=== PATIENT | male | born 1955 | race Caucasian/White ===

== ENCOUNTER 2016-09-27 16:32 | Observation (INO) | payer OTHER ==
[2016-09-27] MEDS ORDERED: ZOFRAN INJ 4 MG VIAL IVP PRN (17:35)
[2016-09-27] MEDS: MORPHINE SULFATE INJ 2 MG IVP PRN ×2 (17:56→22:00)
[2016-09-27] MEDS: ZOSYN VIAL 3.375 GM 3.375 GM in NS 100 ML IV + SPIKE MINIBAG* 100 ML IV SCH (17:56)
[2016-09-27] MEDS: NS 1000 ML 1,000 ML IV SCH (17:57)
[2016-09-27 18:46] LABS: BASOPHILS # (AUTO) 0.1 X10^3/uL (0.0-0.1); BASOPHILS % (AUTO) 0.4 % (0.2-1.0); EOSINOPHILS # (AUTO) 0.1 x10^3/uL (0.0-0.2); EOSINOPHILS % (AUTO) 0.9 % (0.9-2.9); HEMATOCRIT 47.1 % (42.0-54.0); HEMOGLOBIN 15.7 g/dL (13.5-18.0); LYMPHOCYTES % (AUTO) 13.3 % (21.0-51.0); MEAN CORPUSCULAR HEMOGLOBIN 32.1 pg (27.0-34.0); MEAN CORPUSCULAR HGB CONC 33.3 g/dL (33.0-35.0); MEAN CORPUSCULAR VOLUME 96.3 fL (80.0-100.0); MEAN PLATELET VOLUME 10.1 fL (7.4-11.0); MONOCYTES % (AUTO) 6.3 % (0.0-13.0); NEUTROPHILS % (AUTO) 79.1 % (42.0-75.0); PLATELET COUNT 228 X10^3/uL (150.0-450.0); RED BLOOD COUNT 4.89 X10^6/uL (4.7-6.0); RED CELL DISTRIBUTION WIDTH 13.3 % (11.6-16.5); WHITE BLOOD COUNT 15.2 X10^3/uL (3.6-10.0)
[2016-09-27 19:00] LABS: ALANINE AMINOTRANSFERASE 41 Units/L (12-78); ALBUMIN 3.6 g/dL (3.4-5.0); ALKALINE PHOSPHATASE 72 Units/L (46-116); ASPARTATE AMINO TRANSFERASE 27 Units/L (15-37); BLOOD UREA NITROGEN 36 mg/dL (7-18); CALCIUM 7.8 mg/dL (8.5-10.1); CARBON DIOXIDE 18.7 mmol/L (21-32); CHLORIDE 108 mmol/L (98-107); COR NA(FOR HYPERGLY) 141 mmol/L (136-145); CREATININE 1.77 mg/dL (0.70-1.30); GLUCOSE 145 mg/dL (65-99); SODIUM 140 mmol/L (136-145); TOTAL PROTEIN 7.3 g/dL (6.4-8.2); eGFR BLACK RACES 50 (>60); eGFR NON BLACK RACES 42 (>60)
[2016-09-27 19:30] LABS: ERYTHROCYTE SEDIMENTATION RATE 5 MM/HOUR (0-15)
[2016-09-27 20:00] VITALS: BMI 42.9
[2016-09-27 21:56] LABS: BILIRUBIN,URINE NEGATIVE (NEGATIVE); BLOOD/HEMOGLOBIN,URINE NEGATIVE (NEGATIVE); GLUCOSE, URINE NEGATIVE (NEGATIVE); KETONES,URINE 1+ (NEGATIVE); LEUKOCYTE ESTERASE ,URINE 1+ (NEGATIVE); NITRITES,URINE NEGATIVE (NEGATIVE); PROTEIN,URINE 1+ (NEGATIVE); UROBILINOGEN,URINE NORMAL (NORMAL)
[2016-09-27 22:10] LABS: APPEARANCE,URINE SLIGHTLY HAZY (CLEAR); COLOR,URINE YELLOW (YELLOW)
[2016-09-27 22:11] LABS: BACTERIA,URINE NEGATIVE /HPF (NEGATIVE); MUCUS,URINE FEW /HPF (NEGATIVE); RBC,URINE 0-3 /HPF (NEGATIVE); SQUAMOUS EPITHELIAL CELL,UR FEW /HPF (NEGATIVE)
[2016-09-28 02:32] LABS: CREATININE 2.18 mg/dL (0.70-1.30)
--- NOTE | 2016-09-28 03:45 | CT ---
EXAM: CT ABDOMEN AND PELVIS WITHOUT CONTRAST INDICATION: Right lower quadrant pain COMPARISION: No priors available for comparison TECHNIQUE: Axial CT examination of the abdomen and pelvis was performed without intravenous contrast. Coronal a nd sagittal reconstructions were created using the axial data. FINDINGS: The lung bases are clear. The liver, spleen, pancreas, adrenal glands, and left kidney are normal. T here is a right renal cyst. The gallbladder has been removed. There is no evidence of biliary ducta l dilatation. The aorta and inferior vena cava are normal in caliber. The bowel loops are nonobstruc nish. There is a large rectus sheath hematoma on the right. The hematoma is 25 cm craniocaudal, 14.6 cm tr ansverse, and 6 cm in thickness. There is stranding along the caudal aspect of the rectus sheath hem atoma which likely indicates rupture within the anterior aspect of the pelvis. There is colonic dive rticulosis. Prior abdominal wall hernia repair clips are present. Urinary bladder is normal. The regional skeleton is intact. IMPRESSION: There is a large right-sided rectus sheath hematoma as described above. Reported By:
[2016-09-28 05:36] LABS: BASOPHILS # (AUTO) 0.1 X10^3/uL (0.0-0.1); BASOPHILS % (AUTO) 0.7 % (0.2-1.0); EOSINOPHILS # (AUTO) 0.3 x10^3/uL (0.0-0.2); EOSINOPHILS % (AUTO) 2.4 % (0.9-2.9); HEMATOCRIT 44.4 % (42.0-54.0); HEMOGLOBIN 14.7 g/dL (13.5-18.0); LYMPHOCYTES # (AUTO) 3.1 X10^3/uL (1.3-2.9); LYMPHOCYTES % (AUTO) 26.6 % (21.0-51.0); MEAN CORPUSCULAR HEMOGLOBIN 31.9 pg (27.0-34.0); MEAN CORPUSCULAR HGB CONC 33.1 g/dL (33.0-35.0); MEAN CORPUSCULAR VOLUME 96.4 fL (80.0-100.0); MEAN PLATELET VOLUME 9.8 fL (7.4-11.0); MONOCYTES # (AUTO) 1.1 x10^3/uL (0.3-0.8); MONOCYTES % (AUTO) 9.9 % (0.0-13.0); NEUTROPHILS # (AUTO) 6.9 x10^3/uL (2.2-4.8); NEUTROPHILS % (AUTO) 60.4 % (42.0-75.0); PLATELET COUNT 212 X10^3/uL (150.0-450.0); RED CELL DISTRIBUTION WIDTH 13.3 % (11.6-16.5); WHITE BLOOD COUNT 11.5 X10^3/uL (3.6-10.0)
[2016-09-28] MEDS: NS 100 ML IV 100 ML IV ONE ×2 (06:00)
[2016-09-28] MEDS: NS 1000 ML 1,000 ML IV SCH ×4 (06:01→21:26)
[2016-09-28 06:07] LABS: ALANINE AMINOTRANSFERASE 35 Units/L (12-78); ALBUMIN 3.2 g/dL (3.4-5.0); ALKALINE PHOSPHATASE 58 Units/L (46-116); ASPARTATE AMINO TRANSFERASE 23 Units/L (15-37); BLOOD UREA NITROGEN 37 mg/dL (7-18); CALCIUM 7.4 mg/dL (8.5-10.1); CARBON DIOXIDE 19.5 mmol/L (21-32); CHLORIDE 109 mmol/L (98-107); CREATININE 1.92 mg/dL (0.70-1.30); GLUCOSE 109 mg/dL (65-99); SODIUM 140 mmol/L (136-145); TOTAL PROTEIN 6.6 g/dL (6.4-8.2); eGFR BLACK RACES 46 (>60); eGFR NON BLACK RACES 38 (>60)
[2016-09-28 06:24] LABS: ERYTHROCYTE SEDIMENTATION RATE 3 MM/HOUR (0-15)
[2016-09-28] MEDS: ZOSYN VIAL 3.375 GM 3.375 GM in NS 100 ML IV + SPIKE MINIBAG* 100 ML IV SCH ×5 (06:33→21:25)
[2016-09-28] MEDS: ZESTRIL TAB 40 MG PO SCH (09:59)
[2016-09-28] MEDS: FLONASE NASAL SPRAY ENOSTRIL SCH ×2 (09:59→21:29)
[2016-09-28] MEDS: ZYLOPRIM PO SCH (10:00)
[2016-09-28] MEDS: FOLIC ACID TAB 1 MG PO SCH (10:00)
[2016-09-28] MEDS: MAXZIDE 37.5/25 MG PO SCH (10:00)
[2016-09-28] MEDS: SYNTHROID 75 mcg TAB PO SCH (10:00)
[2016-09-28] MEDS: MORPHINE SULFATE INJ 2 MG IVP PRN ×2 (13:15→22:10)
[2016-09-28] MEDS ORDERED: ROBITUSSIN DM PO PRN (13:48)
[2016-09-28] MEDS ORDERED: ZYRTEC TAB 10 MG PO SCH (21:00)
[2016-09-28] MEDS ORDERED: PROCARDIA XL PO SCH (21:00)
--- NOTE | 2016-09-28 22:11 | DR.UPDATE ---
H&P Update History and Physical Update: H&P UPDATE FOR ADMISSION 09/27/16 MR. ALCALA'S H&P WAS COMPLETED IN OUR OFFICE PRIOR TO ADMISSION. HE HAS BEEN SEEN AND EXAMINED WITH NO CHANGES NOTED.
--- NOTE | 2016-09-28 22:19 | PCM.PROG ---
Progress Note - Progress Note for Day of Date: 09/28/16 - Subjective Subjective: PATIENT CONTINUES WITH ABDOMINAL TENDERNESS UPON PALPATION. CT OF ABD/PELVIS WAS OBTAINED AND REPORTS A LARGE RIGHT-SIDED RECTUS SHEATH HEMATOMA MEASURING 25CM CRANIOCAUDAL, 14.6CM TRANSVERSE, AND 6CM IN THICKNESS. WE DISCUSS REPORT WITH PATIENT AND , BOTH VOICE UNDERSTANDING. PATIENT IS QUESTIONED ABOUT TRAUMA TO ABDOMEN AND HE REPORTS A FALL A COUPLE OF MONTHS AGO AND HAS RECENTLY WAS TREATED FOR AN UPPER RESPIRATORY INFECTION, IN WHICH HE HAD A PERSISTENT COUGH. PATIENT IS REPORTING HE IS FEELING A LITTLE BETTER THIS MORNING. CBC WNL EXCEPT: WBC 11.5. CMP WNL EXCEPT: CHL 109, CARBON DIOXIDE 19.5, BUN/CREAT 37/1.92, GFR 38, GLUCOSE 109, CALCIUM 7.4, ALBUMIN 3.2. CRP 6.40. ESR 3. WE WILL HOLD ZOCOR AND DICLOFENAC. WE WILL CONTINUE CURRENT TREATMENT AND INSTRUCT PATIENT WITH NO ABDOMINAL STRAINING, HE VOICES UNDERSTANDING. WE WILL FOLLOW UP IN AM WITH LABS. - Past Medical Family Social History Past Med/Fam/Surg Hx: No changes since H&P Allergies: Allergies Gabapentin Allergy (Verified 12/01/15 09:23) - Review of Systems ROS: No change since H&P - Vital Signs and I&O's Vital Signs: Temperature 98.3 F Pulse Rate [Right Brachial] 74 Pulse Rate [Left Brachial] 76 Respiratory Rate 18 Blood Pressure [Right Arm] 122/77 Blood Pressure [Left Arm] 102/62 Blood Pressure 141/86 O2 Sat by Pulse Oximetry 93 Intake and Output: Intake & Output 09/26/16 09/27/16 09/28/16 09/29/16 11:59 11:59 11:59 11:59 Intake Total 2080 1132 Output Total 350 800 Balance 1730 332 - Physical Exam Oriented: Normal, Time, Person, Place Eyes: Normal. negative: Blurred Vision, Diplopia, Discharge, Pain, Photophobia Ear: Normal. negative: Swelling, Ecchymosis, Hemotypanum, Laceration Nose: Normal. negative: Injected, Discharge, Blood Throat: Normal. negative: Tonsillar Hypertrophy, Red Respiratory: Normal Cardiovascular: Normal : Normal. negative: Dysuria, Hematuria, Frequency, Discharge, Testicular Pain Auscultation: Bowel Sounds: Normal. negative: Bruit Palpation: Normal. negative: Spleen Enlarged, Liver Enlarged, Mass Pulsatile Tenderness: Diffuse, Moderate. negative: Rebound, Guarding, Rigidity Skin: Normal Musculoskeletal: Normal Psychiatric: Normal Mood Description: Calm, Appropriate Affect: Normal Speech Pattern: Clear, Appropriate - Laboratory and Diagnostics Result Diagrams: 09/28/16 05:00 09/28/16 05:00 Labs: Laboratory WBC 11.5 X10^3/uL (3.6-10.0) H 09/28/16 05:00 RBC 4.60 X10^6/uL (4.7-6.0) L 09/28/16 05:00 Hgb 14.7 g/dL (13.5-18.0) 09/28/16 05:00 Hct 44.4 % (42.0-54.0) 09/28/16 05:00 MCV 96.4 fL (80.0-100.0) 09/28/16 05:00 MCH 31.9 pg (27.0-34.0) 09/28/16 05:00 MCHC 33.1 g/dL (33.0-35.0) 09/28/16 05:00 RDW 13.3 % (11.6-16.5) 09/28/16 05:00 Plt Count 212 X10^3/uL (150.0-450.0) 09/28/16 05:00 MPV 9.8 fL (7.4-11.0) 09/28/16 05:00 Neut % 60.4 % (42.0-75.0) 09/28/16 05:00 Lymph % 26.6 % (21.0-51.0) 09/28/16 05:00 Clay % 9.9 % (0.0-13.0) 09/28/16 05:00 Eos % 2.4 % (0.9-2.9) 09/28/16 05:00 Baso % 0.7 % (0.2-1.0) 09/28/16 05:00 Neut # 6.9 x10^3/uL (2.2-4.8) H 09/28/16 05:00 Lymph # 3.1 X10^3/uL (1.3-2.9) H 09/28/16 05:00 Clay # 1.1 x10^3/uL (0.3-0.8) H 09/28/16 05:00 Eos # 0.3 x10^3/uL (0.0-0.2) H 09/28/16 05:00 Baso # 0.1 X10^3/uL (0.0-0.1) 09/28/16 05:00 Absolute Nucleated RBC 0.0 /100WBC 09/28/16 05:00 ESR 3 MM/HOUR (0-15) 09/28/16 05:00 INR Target Range - 09/28/16 09:15 INR 1.16 (0.8-1.3) 09/28/16 09:15 PTT 27.7 SECONDS (22.9-36.5) 09/28/16 09:15 PTT Comment - 09/28/16 09:15 Sodium 140 mmol/L (136-145) 09/28/16 05:00 Corrected Sodium TNP 09/28/16 05:00 Potassium 4.8 mmol/L (3.5-5.1) 09/28/16 05:00 Chloride 109 mmol/L (98-107) H 09/28/16 05:00 Carbon Dioxide 19.5 mmol/L (21-32) L 09/28/16 05:00 BUN 37 mg/dL (7-18) H 09/28/16 05:00 Creatinine 1.92 mg/dL (0.70-1.30) H 09/28/16 05:00 Est GFR (MDRD) Af Amer 46 (>60) L 09/28/16 05:00 Est GFR (MDRD) Non-Af 38 (>60) L 09/28/16 05:00 Glucose 109 mg/dL (65-99) H 09/28/16 05:00 Calcium 7.4 mg/dL (8.5-10.1) L 09/28/16 05:00 Corrected Calcium 8.0 mg/dL (8.5-10.1) L 09/28/16 05:00 Total Bilirubin 0.70 mg/dL (0.2-1.0) 09/28/16 05:00 AST 23 Units/L (15-37) 09/28/16 05:00 ALT 35 Units/L (12-78) 09/28/16 05:00 Alkaline Phosphatase 58 Units/L (46-116) 09/28/16 05:00 C-Reactive Protein 6.40 mg/L (0-3.0) H 09/28/16 05:00 Total Protein 6.6 g/dL (6.4-8.2) 09/28/16 05:00 Albumin 3.2 g/dL (3.4-5.0) L 09/28/16 05:00 Globulin 3.4 g/dL (2.5-4.5) 09/28/16 05:00 Albumin/Globulin Ratio 0.9 Ratio (1.1-2.1) L 09/28/16 05:00 Specimen Type Clean catch urine 09/27/16 21:44 Urine Color Yellow (YELLOW) 09/27/16 21:44 Urine Appearance Slightly hazy (CLEAR) 09/27/16 21:44 Urine pH 5.0 (5.0 - 8.0) 09/27/16 21:44 Ur Specific [place] 1.025 (1.000-1.030) 09/27/16 21:44 Urine Protein 1+ (NEGATIVE) 09/27/16 21:44 Urine Glucose (UA) Negative (NEGATIVE) 09/27/16 21:44 Urine Ketones 1+ (NEGATIVE) 09/27/16 21:44 Urine Occult Blood Negative (NEGATIVE) 09/27/16 21:44 Urine Nitrite Negative (NEGATIVE) 09/27/16 21:44 Urine Bilirubin Negative (NEGATIVE) 09/27/16 21:44 Urine Urobilinogen Normal (NORMAL) 09/27/16 21:44 Ur Leukocyte Esterase 1+ (NEGATIVE) 09/27/16 21:44 Urine RBC 0-3 /HPF (NEGATIVE) 09/27/16 21:44 Urine WBC 1-4 /HPF (NEGATIVE) 09/27/16 21:44 Ur Squamous Epith Cells Few /HPF (NEGATIVE) 09/27/16 21:44 Urine Bacteria Negative /HPF (NEGATIVE) 09/27/16 21:44 Urine Mucus Few /HPF (NEGATIVE) 09/27/16 21:44 Ur Culture Indicated? No/not indicated 09/27/16 21:44 - Plan (1) Rectus sheath hematoma Status: Acute Qualifiers: Encounter type: initial encounter Qualified Code(s): S30.1XXA - Contusion of abdominal wall, initial encounter Plan: HOLD ZOCOR, DICLOFENAC, CONTINUE TO MONITOR COAGS, MONITOR H/H, MORPHINE NEEDED FOR PAIN. (2) RLQ abdominal pain Status: Acute Plan: ABOVE. (3) Hypertension Status: Chronic Qualifiers: Hypertension type: essential hypertension Qualified Code(s): I10 - Essential (primary) hypertension (4) Hyperlipidemia Status: Chronic Qualifiers: Hyperlipidemia type: mixed hyperlipidemia Qualified Code(s): E78.2 - Mixed hyperlipidemia (5) History of skin cancer Status: Chronic (6) Hypothyroidism Status: Chronic Qualifiers: Hypothyroidism type: acquired Qualified Code(s): E03.9 - Hypothyroidism, unspecified
[2016-09-29 00:38] LABS: HEMATOCRIT 41.5 % (42.0-54.0); HEMOGLOBIN 13.6 g/dL (13.5-18.0)
[2016-09-29] MEDS: MORPHINE SULFATE INJ 2 MG IVP PRN ×2 (01:48→05:24)
[2016-09-29] MEDS: ZOSYN VIAL 3.375 GM 3.375 GM in NS 100 ML IV + SPIKE MINIBAG* 100 ML IV SCH (05:17)
[2016-09-29] MEDS: NS 1000 ML 1,000 ML IV SCH (05:18)
[2016-09-29 06:32] LABS: BASOPHILS # (AUTO) 0.1 X10^3/uL (0.0-0.1); BASOPHILS % (AUTO) 0.6 % (0.2-1.0); EOSINOPHILS # (AUTO) 0.4 x10^3/uL (0.0-0.2); EOSINOPHILS % (AUTO) 3.5 % (0.9-2.9); HEMOGLOBIN 13.7 g/dL (13.5-18.0); LYMPHOCYTES # (AUTO) 2.6 X10^3/uL (1.3-2.9); LYMPHOCYTES % (AUTO) 25.4 % (21.0-51.0); MEAN CORPUSCULAR HEMOGLOBIN 32.2 pg (27.0-34.0); MEAN CORPUSCULAR HGB CONC 32.7 g/dL (33.0-35.0); MEAN CORPUSCULAR VOLUME 98.4 fL (80.0-100.0); MEAN PLATELET VOLUME 9.7 fL (7.4-11.0); MONOCYTES # (AUTO) 1.1 x10^3/uL (0.3-0.8); MONOCYTES % (AUTO) 10.6 % (0.0-13.0); NEUTROPHILS # (AUTO) 6.1 x10^3/uL (2.2-4.8); NEUTROPHILS % (AUTO) 59.9 % (42.0-75.0); PLATELET COUNT 192 X10^3/uL (150.0-450.0); RED BLOOD COUNT 4.27 X10^6/uL (4.7-6.0); RED CELL DISTRIBUTION WIDTH 13.3 % (11.6-16.5); WHITE BLOOD COUNT 10.2 X10^3/uL (3.6-10.0)
[2016-09-29 06:33] LABS: ALANINE AMINOTRANSFERASE 28 Units/L (12-78); ALBUMIN 3.1 g/dL (3.4-5.0); ALKALINE PHOSPHATASE 59 Units/L (46-116); ASPARTATE AMINO TRANSFERASE 22 Units/L (15-37); BLOOD UREA NITROGEN 26 mg/dL (7-18); CALCIUM 7.8 mg/dL (8.5-10.1); CARBON DIOXIDE 21.2 mmol/L (21-32); CHLORIDE 110 mmol/L (98-107); COR CA(FOR HYPOALB) 8.5 mg/dL (8.5-10.1); COR NA(FOR HYPERGLY) 139 mmol/L (136-145); CREATININE 1.44 mg/dL (0.70-1.30); GLUCOSE 113 mg/dL (65-99); SODIUM 139 mmol/L (136-145); TOTAL PROTEIN 6.6 g/dL (6.4-8.2); eGFR BLACK RACES > 60 (>60); eGFR NON BLACK RACES 53 (>60)
[2016-09-29 07:46] LABS: ERYTHROCYTE SEDIMENTATION RATE 8 MM/HOUR (0-15)
[2016-09-29] MEDS: SYNTHROID 75 mcg TAB PO SCH (09:04)
[2016-09-29] MEDS: FOLIC ACID TAB 1 MG PO SCH (09:04)
[2016-09-29] MEDS: FLONASE NASAL SPRAY ENOSTRIL SCH (09:04)
[2016-09-29] MEDS: ZESTRIL TAB 40 MG PO SCH (09:04)
[2016-09-29] MEDS: ZYLOPRIM PO SCH (09:04)
[2016-09-29] MEDS: MAXZIDE 37.5/25 MG PO SCH (09:04)
--- NOTE | 2016-09-29 09:14 | CT ---
HISTORY: Followup rectus sheath hematoma Study: CT abdomen and pelvis without IV contrast Comparison: September 28, 2016 Technique: Multiple axial images of the abdomen and pelvis were obtained from the lung bases to the pubic symph ysis without the administration of IV contrast. Oral contrast agents were given for yesterday's hali dy. Coronal and sagittal images are also reviewed. Dose reduction techniques utilized automatic expo sure control. Findings: The visualized portions of the lung bases are unremarkable. The liver, spleen, pancreas, , and adre nal glands are unremarkable in their CT appearance. The gallbladder is surgically absent. There are simple cyst present involving both kidneys. No solid mass, stone or hydronephrosis is seen.. No sig nificant mesenteric lymphadenopathy or stranding can be observed. No free fluid or free air is seen within the abdomen. No bowel wall thickening or bowel dilatation is present. Uncomplicated appear ing descending and sigmoid colon diverticulosis is appreciated. There is evidence of ventral hernia repair. The rectus sheath hematoma present on the right side is unchanged in size measuring about 7 centimeters in thickness, 13.8 centimeters in width and 25 centimeters in length. Artifacts present from patient's bilateral hip arthroplasties. The visualize bladder is unremarkable.. Multilevel deg enerative changes are present involving the lumbar spine. IMPRESSION: No change in the size and appearance of the right rectus sheath hematoma. Reported By:
[2016-09-29 09:40] VITALS: BP 123/56
== END 2016-09-29 11:25 | disposition home or self-care (01) ==
LOC: MED/SURG 16:32
PROVIDERS: ADMIT Internal Medicine; ATTEND Internal Medicine
DX: M79.81 Nontraumatic hematoma of soft tissue (principal); R10.31 Right lower quadrant pain; I10 Essential (primary) hypertension; E78.2 Mixed hyperlipidemia; E03.8 Other specified hypothyroidism; D64.89 Other specified anemias; R94.4 Abnormal results of kidney function studies; E11.65 Type 2 diabetes mellitus with hyperglycemia; Z85.828 Personal history of other malignant neoplasm of skin; M51.16 Intervertebral disc disorders with radiculopathy, lumbar region; E66.09 Other obesity due to excess calories; E29.1 Testicular hypofunction; Z79.01 Long term (current) use of anticoagulants; Z79.899 Other long term (current) drug therapy
CPT/HCPCS: 36415; 74176; 80053; 81001; 82565; 84520; 85014; 85018; 85025; 85610; 85652; 85730; 86140; 87040; 94760; A4222; G0378; J2270; J2405; J2543

== ENCOUNTER → 2016-10-04 | Outpatient (CLI) | payer OTHER ==
[2016-09-29 09:40] VITALS: BP 123/56
[2016-10-04 15:42] LABS: BASOPHILS # (AUTO) 0.1 X10^3/uL (0.0-0.1); BASOPHILS % (AUTO) 0.8 % (0.2-1.0); EOSINOPHILS # (AUTO) 0.3 x10^3/uL (0.0-0.2); EOSINOPHILS % (AUTO) 2.9 % (0.9-2.9); HEMATOCRIT 42.4 % (42.0-54.0); HEMOGLOBIN 14.3 g/dL (13.5-18.0); LYMPHOCYTES # (AUTO) 1.7 X10^3/uL (1.3-2.9); LYMPHOCYTES % (AUTO) 16.2 % (21.0-51.0); MEAN CORPUSCULAR HEMOGLOBIN 32.3 pg (27.0-34.0); MEAN CORPUSCULAR HGB CONC 33.7 g/dL (33.0-35.0); MEAN CORPUSCULAR VOLUME 95.9 fL (80.0-100.0); MEAN PLATELET VOLUME 9.6 fL (7.4-11.0); MONOCYTES # (AUTO) 1.1 x10^3/uL (0.3-0.8); MONOCYTES % (AUTO) 10.4 % (0.0-13.0); NEUTROPHILS # (AUTO) 7.3 x10^3/uL (2.2-4.8); NEUTROPHILS % (AUTO) 69.7 % (42.0-75.0); PLATELET COUNT 270 X10^3/uL (150.0-450.0); RED BLOOD COUNT 4.42 X10^6/uL (4.7-6.0); WHITE BLOOD COUNT 10.5 X10^3/uL (3.6-10.0)
[2016-10-04 15:48] LABS: ALANINE AMINOTRANSFERASE 31 Units/L (12-78); ALBUMIN 3.5 g/dL (3.4-5.0); ALKALINE PHOSPHATASE 71 Units/L (46-116); ASPARTATE AMINO TRANSFERASE 23 Units/L (15-37); BLOOD UREA NITROGEN 31 mg/dL (7-18); CALCIUM 8.5 mg/dL (8.5-10.1); CARBON DIOXIDE 23.9 mmol/L (21-32); CHLORIDE 104 mmol/L (98-107); COR NA(FOR HYPERGLY) 139 mmol/L (136-145); CREATININE 1.73 mg/dL (0.70-1.30); GLUCOSE 126 mg/dL (65-99); SODIUM 138 mmol/L (136-145); TOTAL PROTEIN 7.8 g/dL (6.4-8.2); eGFR BLACK RACES 52 (>60); eGFR NON BLACK RACES 43 (>60)
== END ==
LOC: LAB 15:10
PROVIDERS: ATTEND Dermatology Procedural Dermatology
DX: Z79.899 Other long term (current) drug therapy (principal)
CPT/HCPCS: 36415; 80053; 85025

== ENCOUNTER → 2017-04-18 | Outpatient (CLI) | payer OTHER ==
[2017-04-18 11:58] LABS: BASOPHILS # (AUTO) 0.1 X10^3/uL (0.0-0.1); BASOPHILS % (AUTO) 0.7 % (0.2-1.0); EOSINOPHILS # (AUTO) 0.3 x10^3/uL (0.0-0.2); EOSINOPHILS % (AUTO) 3.5 % (0.9-2.9); HEMATOCRIT 45.3 % (42.0-54.0); HEMOGLOBIN 15.4 g/dL (13.5-18.0); LYMPHOCYTES # (AUTO) 2.1 X10^3/uL (1.3-2.9); LYMPHOCYTES % (AUTO) 26.2 % (21.0-51.0); MEAN CORPUSCULAR HEMOGLOBIN 33.2 pg (27.0-34.0); MEAN CORPUSCULAR HGB CONC 33.9 g/dL (33.0-35.0); MEAN CORPUSCULAR VOLUME 98.1 fL (80.0-100.0); MEAN PLATELET VOLUME 9.4 fL (7.4-11.0); MONOCYTES # (AUTO) 0.7 x10^3/uL (0.3-0.8); MONOCYTES % (AUTO) 8.7 % (0.0-13.0); NEUTROPHILS # (AUTO) 4.8 x10^3/uL (2.2-4.8); NEUTROPHILS % (AUTO) 60.9 % (42.0-75.0); PLATELET COUNT 209 X10^3/uL (150.0-450.0); RED BLOOD COUNT 4.62 X10^6/uL (4.7-6.0); RED CELL DISTRIBUTION WIDTH 14.2 % (11.6-16.5)
[2017-04-18 12:07] LABS: ALANINE AMINOTRANSFERASE 26 Units/L (12-78); ALBUMIN 3.6 g/dL (3.4-5.0); ALKALINE PHOSPHATASE 80 Units/L (46-116); ASPARTATE AMINO TRANSFERASE 22 Units/L (15-37); BLOOD UREA NITROGEN 26 mg/dL (7-18); CALCIUM 8.5 mg/dL (8.5-10.1); CHLORIDE 106 mmol/L (98-107); CREATININE 1.76 mg/dL (0.70-1.30); SODIUM 140 mmol/L (136-145); TOTAL PROTEIN 7.8 g/dL (6.4-8.2); eGFR BLACK RACES 51 (>60); eGFR NON BLACK RACES 42 (>60)
[2017-04-20 21:39] LABS: HEPATITIS A ANTIBODY IGM Negative (Negative)
[2017-04-22 06:19] LABS: HEPATITIS B CORE IGM Negative (Negative); HEPATITIS B SURFACE ANTIGEN Negative (Negative)
== END ==
LOC: LAB 11:18
PROVIDERS: ATTEND Dermatology
DX: Z79.899 Other long term (current) drug therapy (principal)
CPT/HCPCS: 36415; 80053; 80074; 85025; 86480